=== PATIENT | female | born 1970 | race Caucasian/White ===

== ENCOUNTER → 2018-01-05 | Outpatient (CLI) | payer BC ==
[~2018-01-05] VITALS: Ht 157.5 cm; Wt 111.5 kg
[~2018-01-05] MED LIST: AMITIZA8 MICROGRA PO; ASPIR 8181 M1 PO; FLEXERIL10 MG PO; MOBIC15 MG PO; MOBIC7.5 MG PO; PROAIR HFA8.5 GM IH; RABEPRAZOLE SOD20 MG PO; TRIAMTERENE-HC1 EAC1 PO; ULTRAM50 MG PO; VALIUM2 MG PO; VITAMIN D1000 UNIT PO
== END | disposition home or self-care (01) ==
LOC: AMB 12:09
PROC: 0DB68ZX Excision of Stomach, Via Natural or Artificial Opening Endoscopic, Diagnostic (ICD-10-PCS; principal; 2018-01-05)
DX: K29.50 Unspecified chronic gastritis without bleeding (principal); K31.84 Gastroparesis; K21.9 Gastro-esophageal reflux disease without esophagitis; I10 Essential (primary) hypertension; J45.909 Unspecified asthma, uncomplicated; E66.9 Obesity, unspecified; Z68.41 Body mass index [BMI] 40.0-44.9, adult; Z79.82 Long term (current) use of aspirin; Z88.0 Allergy status to penicillin; Z86.72 Personal history of thrombophlebitis
CPT/HCPCS: 88305; 88342 TC